=== PATIENT | female | born 1995 | race Caucasian/White ===

== ENCOUNTER 2018-03-25 05:55 | Emergency (ER) | payer OTHER ==
[~2018-03-25] VITALS: Ht 170.2 cm; Wt 83.0 kg
[2018-03-25 05:59] VITALS: BP 129/79
--- NOTE | 2018-03-25 06:06 | NUR ---
PT TAKEN TO BED 11
--- NOTE | 2018-03-25 06:18 | NUR ---
Dr. Hamilton evaluating patient at bedside.
--- NOTE | 2018-03-25 06:25 | NUR ---
23/F CAME IN ED WITH FAMILY/FRIEND, C/O PRESSURE-LIKE LOWER BACK PAIN, X10 HRS. PT REPORTS N/V X4. PT REPORTS FALLING ON BACK 2 WEEKS AGO, LOWER BACK PAIN RESOLVED WITH ICE. NO OBVIOUS ABNORMALITY NOTED ON LOWER BACK, +TENDERNESS. PT DENIES CP, SOB, DIARRHEA, DYSURIA. PT DENIES MED HX, RX. ER MD AT BEDSIDE TO EVALUATE PT.
[2018-03-25] MEDS ORDERED: DIAZEPAM 5 MG TAB PO ONE (07:00)
[2018-03-25] MEDS ORDERED: KETOROLAC 30 MG/ML VIAL IM ONE (07:00)
[2018-03-25 07:25] VITALS: BP 138/78
--- NOTE | 2018-03-25 07:25 | NUR ---
Patient discharged with v/s stable. Written and verbal after care instructions given and explained. Patient alert, oriented and verbalized understanding of instructions. Ambulatory with steady gait. All questions addressed prior to discharge. ID band removed. Patient advised to follow up with PMD. Rx of naprosyn, valium given. Patient educated on indication of medication including possible reaction and side effects. Opportunity to ask questions provided and answered.
== END 2018-03-25 07:25 | disposition home or self-care (01) ==
LOC: MED 05:55
DX: M54.5 Low back pain (principal)
CPT/HCPCS: 81002; 81025; 96372; 99283; J1885

== ENCOUNTER 2018-11-06 04:25 | Emergency (ER) | payer BC, OTHER ==
[~2018-11-06] VITALS: Ht 165.1 cm; Wt 84.4 kg
[2018-11-06 04:39] VITALS: BP 146/87
[2018-11-06] MEDS ORDERED: NACL 0.9% 1,000 ML IV ONE (04:42)
[2018-11-06] MEDS ORDERED: ONDANSETRON 4 MG/2 ML VIAL IVP ONE (04:45)
--- NOTE | 2018-11-06 04:45 | NUR ---
PT PRESENTS TO ED WITH C/O ABD PAIN S/P DRINKING MILK TODAY AT MIDNIGHT. PT REPORT N/V. PT DENIES PAIN UPON PALPATION. ABD IS SOFT NON TENDER. NO DISTENTION NOTED. PT PLACED INTO BED, PENDING MD GRANT.
--- NOTE | 2018-11-06 05:14 | NUR ---
LABS COMPLETED BY RN AND WALKED OVER TO LAB
[2018-11-06 05:20] LABS: BASOPHILS % (AUTO) 0.2 % (0.0-2.0); EOSINOPHILS # (AUTO) 0.3 K/uL (0-0.4); EOSINOPHILS % (AUTO) 3.7 % (0.0-4.0); HEMOGLOBIN 13.4 g/dL (12.0-16.0); LYMPHOCYTES # (AUTO) 2.7 K/uL (2.5-16.5); LYMPHOCYTES % (AUTO) 29.6 % (20.5-51.1); MEAN CORPUSCULAR HEMOGLOBIN 28 pg (27-31); MEAN CORPUSCULAR HGB CONC 34 g/dL (33-37); MONOCYTES # (AUTO) 0.8 K/uL (0.8-1.0); MONOCYTES % (AUTO) 8.9 % (1.7-9.3); NEUTROPHILS # (AUTO) 5.2 K/uL (1.8-7.7); NEUTROPHILS % (AUTO) 57.6 % (42.2-75.2); PLATELET COUNT (AUTO) 334 K/uL (140-450); RED BLOOD CELL COUNT(AUTO) 4.82 MIL/uL (4.20-5.40); RED CELL DISTRIBUTION WIDTH 14.3 % (11.6-13.7); WHITE BLOOD COUNT (AUTO) 9.1 K/uL (4.8-10.8)
[2018-11-06] MEDS ORDERED: MORPHINE SULFATE 4 MG/ML SYR IVP ONE (05:20)
[2018-11-06 05:41] LABS: ANION GAP 13.8 (8-16); CARBON DIOXIDE 27.2 mmol/L (21-32); CREATININE 0.8 mg/dL (0.6-1.3)
[2018-11-06 05:43] LABS: APPEARANCE,URINE CLEAR (CLEAR); BILIRUBIN,URINE NEGATIVE (NEGATIVE); BLOOD, URINE 2+ (NEGATIVE); COLOR,URINE YELLOW (YELLOW); LEUKOCYTE ESTERASE ,URINE NEGATIVE (NEGATIVE); NITRITE, URINE NEGATIVE (NEGATIVE); UGLUCOSE NEGATIVE (NEGATIVE)
[2018-11-06 05:46] LABS: ALBUMIN 3.9 g/dL (3.4-5.0); TOTAL BILIRUBIN 0.3 mg/dL (0.0-1.0)
[2018-11-06 05:56] LABS: WBC,URINE 0-5 /HPF (0-5)
--- NOTE | 2018-11-06 07:23 | NUR ---
REPORT GIVEN TO DANYELL MERCHANT. TRANSFER OF CARE AT THIS TIME.
--- NOTE | 2018-11-06 07:23 | NUR ---
RECEIVED REPORT FROM DANYELL RODRÍGUEZ FOR TRANSFER OF CARE.
[2018-11-06 08:57] VITALS: BP 129/74
--- NOTE | 2018-11-06 08:57 | NUR ---
Patient discharged with v/s stable. Written and verbal after care instructions given and explained. Patient alert, oriented and verbalized understanding of instructions. Ambulatory with steady gait. All questions addressed prior to discharge. ID band removed. Patient advised to follow up with PMD. Rx of Reglan, Bentyl, Tramadol Hydrochloride given. Patient educated on indication of medication including possible reaction and side effects. Opportunity to ask questions provided and answered.
== END 2018-11-06 08:57 | disposition home or self-care (01) ==
LOC: MED 04:25
DX: K80.20 Calculus of gallbladder without cholecystitis without obstruction (principal); R19.7 Diarrhea, unspecified
CPT/HCPCS: 36415; 76705; 80053; 81001; 81025; 83690; 85025; 96361; 96374; 96375; 99284; J2270; J2405; J7030; Q0092

== ENCOUNTER 2018-11-08 07:40 | Inpatient (IN) | payer BC, OTHER ==
[~2018-11-08] VITALS: Ht 167.6 cm; Wt 81.6 kg
[2018-11-08 07:46] VITALS: BP 121/75
--- NOTE | 2018-11-08 07:49 | NUR ---
urine cup handed to pt for sample
--- NOTE | 2018-11-08 07:55 | NUR ---
23/ BIB mother c/o N/V/D & epigastric pain x today. seen HERE 2 DAYS AGO.hx: MULTIPLE GALL STONES. rx----reglan, dicyclomine, tramadol. PATIENT STATES PAIN OF 10/10 AT THIS TIME; PATIENT POSITIONED FOR COMFORT; HOB ELEVATED; BEDRAILS UP X2; BED DOWN. ER MD MADE AWARE OF PT STATUS.
--- NOTE | 2018-11-08 08:07 | NUR ---
Patient being evaluated by DR RAMESH at bedside.
[2018-11-08] MEDS ORDERED: NACL 0.9% 1,000 ML IV ONE (08:12)
[2018-11-08] MEDS ORDERED: NACL 0.9% 1,000 ML IV SCH ×2 (08:12→10:08)
[2018-11-08] MEDS ORDERED: KETOROLAC 30 MG/ML VIAL IVP ONE (08:15)
[2018-11-08] MEDS ORDERED: ONDANSETRON 4 MG/2 ML VIAL IVP ONE (08:15)
[2018-11-08 08:58] LABS: BASOPHILS % (AUTO) 0.5 % (0.0-2.0); EOSINOPHILS # (AUTO) 0.3 K/uL (0-0.4); HEMATOCRIT 41.6 % (36-48); HEMOGLOBIN 13.7 g/dL (12.0-16.0); LYMPHOCYTES # (AUTO) 1.8 K/uL (2.5-16.5); LYMPHOCYTES % (AUTO) 23.4 % (20.5-51.1); MEAN CORPUSCULAR HEMOGLOBIN 28 pg (27-31); MEAN CORPUSCULAR HGB CONC 33 g/dL (33-37); MEAN CORPUSCULAR VOLUME 83.2 fL (80-94); MONOCYTES # (AUTO) 0.6 K/uL (0.8-1.0); NEUTROPHILS % (AUTO) 64.1 % (42.2-75.2); PLATELET COUNT (AUTO) 311 K/uL (140-450); RED CELL DISTRIBUTION WIDTH 14.3 % (11.6-13.7); WHITE BLOOD COUNT (AUTO) 7.8 K/uL (4.8-10.8)
--- NOTE | 2018-11-08 09:04 | NUR ---
US TEECH AT BEDSIDE AT THIS TIME.
[2018-11-08 09:10] LABS: ANION GAP 15.6 (8-16); CARBON DIOXIDE 24.9 mmol/L (21-32); CREATININE 0.7 mg/dL (0.6-1.3); POTASSIUM 4.5 mmol/L (3.5-5.1); PROTHROMBIN TIME 9.9 secs (10.8-13.4)
[2018-11-08 09:12] LABS: ALBUMIN 4.1 g/dL (3.4-5.0); TOTAL BILIRUBIN 0.7 mg/dL (0.0-1.0)
[2018-11-08 09:17] LABS: APPEARANCE,URINE CLEAR (CLEAR); BILIRUBIN,URINE NEGATIVE (NEGATIVE); BLOOD, URINE 2+ (NEGATIVE); COLOR,URINE YELLOW (YELLOW); LEUKOCYTE ESTERASE ,URINE NEGATIVE (NEGATIVE); NITRITE, URINE NEGATIVE (NEGATIVE); PH,URINE 7.5 (5.0-9.0); UGLUCOSE NEGATIVE (NEGATIVE)
[2018-11-08 09:30] LABS: RBC,URINE 11-20 (MOD) /HPF (0-5); WBC,URINE 0-5 /HPF (0-5)
--- NOTE | 2018-11-08 09:33 | NUR ---
Patient being reevaluated by DR RAMESH at bedside.
[2018-11-08] MEDS ORDERED: MORPHINE SULFATE 4 MG/ML SYR IVP ONE (09:50)
[2018-11-08] MEDS ORDERED: TRAM50TA1 PO (09:56)
[2018-11-08] MEDS ORDERED: METO-485 PO (09:56)
[2018-11-08] MEDS ORDERED: DICY10CA14 PO (09:56)
--- NOTE | 2018-11-08 09:59 | NUR ---
Patient appears to be resting comfortably in bed. Vital Signs within normal limits. Respirations even and unlabored.will continue to monitor.
[2018-11-08] MEDS ORDERED: ACETAMINOPHEN 325 MG TAB PO PRN (10:10)
[2018-11-08] MEDS ORDERED: LORazepam 2 MG/ML VIAL IM/IVP PRN (10:10)
[2018-11-08] MEDS ORDERED: ZOLPIDEM 5 MG TAB PO PRN (10:10)
[2018-11-08] MEDS ORDERED: ONDANSETRON 4 MG/2 ML VIAL IM/IVP PRN (10:10)
[2018-11-08] MEDS ORDERED: DOCUSATE SODIUM 100 MG GELCAP PO PRN (10:10)
[2018-11-08] MEDS ORDERED: HYDROcodone/APAP 5/325 MG 1 TAB TAB PO PRN (10:10)
[2018-11-08] MEDS ORDERED: MORPHINE SULFATE 2 MG/ML SYR IVP PRN (10:10)
--- NOTE | 2018-11-08 10:25 | NUR ---
LAB AT BEDSIDE.
--- NOTE | 2018-11-08 10:32 | NUR ---
PT TAKEN TO X RAY
--- NOTE | 2018-11-08 10:45 | NUR ---
Patient will be admitted to care of DR HOLLAND. Admited to MS. Will go to room 126A. Belongings list completed. Report to EARL CHILD.
[2018-11-08 10:50] VITALS: BP 120/80
--- NOTE | 2018-11-08 11:00 | NUR ---
MRSA SWABS AND URINE SPECIMEN TAKEN AND SENT TO LAB.
--- NOTE | 2018-11-08 11:00 | NUR ---
Admitted from ED , with chief complaint of ABDOMINAL PAIN. PT AAOX4. NO SOB NOTED. NO C/O PAIN AT THIS TIME. IV TO RT AND LT HAND PATENT AND INTACT. CHEST CLEAR. ABDOMEN SOFT, BOWEL SOUNDS PRESENT. INSTRUCTED PT NPO ORDERED. PT IS A 23 y/o ,Female, Cooperative,oriented to call light, bed, phone,television, bathroom, smoking policy,visiting hours, procedures, ID bracelet on. Belongings list checked. INSTRUCTED PT TO CALL FOR ASSISTANCE, CALL LIGHT WITHIN REACH, VERBALIZED UNDERSTANDING.
[2018-11-08 12:05] LABS: PROTHROMBIN TIME 10.3 secs (10.8-13.4)
[2018-11-08 12:08] LABS: BARBITURATE, URINE NEG. ng/ml (NEG <=200); BENZODIAZEPINE, URINE NEG. ng/mL (NEG <=200); CANNABINOID, URINE NEG. ng/mL (NEG <=50); COCAINE, URINE NEG. ng/mL (NEG <=300); OPIATE, URINE NEG. ng/mL (NEG <=2000); PHENCYCLIDINE SCREEN,URINE NEG. ng/mL (NEG <=25)
[2018-11-08 12:19] LABS: MAGNESIUM 1.8 mg/dL (1.8-2.4); PHOSPHORUS 2.2 mg/dL (2.5-4.9); THYROID STIMULATING HORMONE 0.87 uIU/mL (0.34-3.74)
--- NOTE | 2018-11-08 13:05 | NUR ---
PT RESTING. NO SOB NOTED. NO COMPLAINTS MADE. NPO MAINTAINED.
--- NOTE | 2018-11-08 15:28 | NUR ---
PATIENT HAS BEEN SCREENED AND CATEGORIZED HIGH NUTRITION RISK. PATIENT WILL BE SEEN WITHIN 1-2 DAYS OF ADMISSION. 11/09/18-11/10/[address]
[2018-11-08 16:00] VITALS: BP 118/80
[2018-11-08] MEDS ORDERED: SODIUM PHOSPHATE 15 MMOLE in NACL 0.9% 250 ML IV SCH (17:00)
--- NOTE | 2018-11-08 17:00 | NUR ---
PT AWAKE TALKING TO MOTHER AT THE BEDSIDE. NO COMPLAINTS MADE.
[2018-11-08] MEDS: BUPIVACAINE-MPF/EPI 0.25% 30 ML VIAL INJ ONE (18:09)
[2018-11-08] MEDS ORDERED: PANTOPRAZOLE 40 MG INJ VIAL IVP SCH (19:00)
--- NOTE | 2018-11-08 19:05 | NUR ---
PT AWAKE, NOTIFIED THAT PT 'S SCHEDULE FOR SURGERY IS AT 5 HRS TONIGHT. NPO MAINTAINED, VERBALIZED UNDERSTANDING. NO SOB NOTED. NO COMPLAINTS MADE. OR CHECK LIST STARTED. ENDORSED TO NEXT SHIFT NURSE FOR CONTINUITY OF CARE.
--- NOTE | 2018-11-08 19:06 | NUR ---
RECEIVED REPORT FROM DAY SHIFT NURSE EARL-RN AT BEDSIDE. PT RESTING IN BED, AOX4 WITH FAMILY AT BEDSIDE. ON ROOM AIR WITH LEFT HAND #22G RUNNING D5/NS @100 AND RIGHT FA #20G-SL. DISCUSSED PLAN OF CARE AND PT VERBALIZED UNDERSTANDING. NO S/S OF RESPIRATORY DISTRESS OR DISCOMFORT NOTED AT THIS TIME. BED IN LOWEST POSITION, BED BREAKS ON, BOTH SIDE RAILS UP. BEDSIDE TABLE AND CALL LIGHT ARE WITHIN REACH. WILL CONTINUE TO MONITOR.
[2018-11-08 20:00] VITALS: BP 119/73
--- NOTE | 2018-11-08 20:00 | NUR ---
VITAL SIGNS TAKEN AND TOLERATED WELL. NO S/S OF RESPIRATORY DISTRESS OR DISCOMFORT NOTED AT THIS TIME. WILL CONTINUE TO MONITOR.
--- NOTE | 2018-11-08 21:23 | NUR ---
DR. JERRICA ZEPEDA HAS RESCHEDULED SURGERY FOR TOMORROW 11/09/2018 AND ORDERED TO HAVE PT ON A CLEAR LIQUID DIET UNTIL MIDNIGHT NPO. SCHEDULED MEDICATION PROTONIX GIVEN AND TOLERATED WELL. NO S/S OF RESPIRATORY DISTRESS OR DISCOMFORT NOTED AT THIS TIME. WILL CONTINUE TO MONITOR.
[2018-11-08] MEDS: DEXT 5% /NACL 0.9% 1,000 ML IV SCH (21:28)
--- NOTE | 2018-11-08 22:00 | NUR ---
PT RESTING IN BED. NO S/S OF RESPIRATORY DISTRESS OR DISCOMFORT NOTED AT THIS TIME. WILL CONTINUE TO MONITOR.
[2018-11-09] VITALS: BP 102/60
--- NOTE | 2018-11-09 | NUR ---
VITAL SIGNS TAKEN AND TOLERATED WELL. NO S/S OF RESPIRATORY DISTRESS OR DISCOMFORT NOTED AT THIS TIME. WILL CONTINUE TO MONITOR.
--- NOTE | 2018-11-09 01:37 | NUR ---
SCHEDULED MEDICATION ROCEPHIN GIVEN AND TOLERATED WELL. NO S/S OF RESPIRATORY DISTRESS OR DISCOMFORT NOTED AT THIS TIME. WILL CONTINUE TO MONITOR.
[2018-11-09] MEDS ORDERED: cefTRIAXone 1,000 MG VIAL ONE (01:40)
--- NOTE | 2018-11-09 02:45 | NUR ---
ENDORSED PT CARE TO CHARGE NURSE ANTONIETA-DANYELL FOR CONTINUITY OF CARE.
--- NOTE | 2018-11-09 02:46 | NUR ---
RECEIVED PT SLEEPING, NO SIGNS OF PAIN, IVF INFUSING WELL, MAINTAINED ON NPO, FOR SURGERY TODAY AT 1030, MONITORED CLOSELY.
--- NOTE | 2018-11-09 04:36 | NUR ---
ROUNDS MADE, PT SLEEPING, NO SIGNS OF PAIN, IVF INFUSING WELL, MOTHER AT BEDSIDE.
--- NOTE | 2018-11-09 06:10 | NUR ---
AM LABS DRAWN, DENIES ANY PAIN, MADE AWARE OF SCHEDULE OR TIME, MAINTAINED ON NPO, IVF INFUSING WELL, MOTHER AT BEDSIDE.
[2018-11-09 08:00] VITALS: BP 119/68
[2018-11-09 08:04] LABS: ANION GAP 13.1 (8-16); CARBON DIOXIDE 25.1 mmol/L (21-32); CREATININE 0.7 mg/dL (0.6-1.3); POTASSIUM 4.2 mmol/L (3.5-5.1)
[2018-11-09 08:27] LABS: HEMATOCRIT 35.2 % (36-48); HEMOGLOBIN 11.9 g/dL (12.0-16.0); MEAN CORPUSCULAR HEMOGLOBIN 28 pg (27-31); MEAN CORPUSCULAR HGB CONC 34 g/dL (33-37); MEAN CORPUSCULAR VOLUME 83.5 fL (80-94); PLATELET COUNT (AUTO) 361 K/uL (140-450); RED BLOOD CELL COUNT(AUTO) 4.21 MIL/uL (4.20-5.40); RED CELL DISTRIBUTION WIDTH 14.3 % (11.6-13.7); WHITE BLOOD COUNT (AUTO) 6.7 K/uL (4.8-10.8)
[2018-11-09 08:32] LABS: MAGNESIUM 1.8 mg/dL (1.8-2.4); PHOSPHORUS 3.2 mg/dL (2.5-4.9)
[2018-11-09 08:35] LABS: CHOL/HDL RATIO 3.8 (1-4.5)
[2018-11-09] MEDS ORDERED: PANTOPRAZOLE 40 MG INJ VIAL IVP SCH (09:00)
[2018-11-09 09:29] LABS: LYMPHOCYTES % (MANUAL) 28 % (20-46)
[2018-11-09 09:30] LABS: EOSINOPHILS % (MANUAL) 6 % (0-4); MONOCYTES % (MANUAL) 11 % (5-12)
[2018-11-09] MEDS: PANTOPRAZOLE 40 MG INJ VIAL IVP SCH (09:31)
[2018-11-09] MEDS: DEXT 5% /NACL 0.9% 1,000 ML IV SCH ×2 (09:31→17:00)
--- NOTE | 2018-11-09 14:40 | NUR ---
11/09/18 RD INITIAL ASSESSMENT COMPLETED PLEASE REFER TO NUTRITION ASSESSMENT UNDER CARE ACTIVITY FOR ESTIMATED NUTRITIONAL NEEDS. 1. CONTINUE NPO MEDICALLY NECESSARY 2. RECOMMEND A LOW FAT DIET WHEN PT IS MEDICALLY STABLE TO RECEIVE NUTRITION 3. LOW FAT DIET EDUCATION WAS PROVIDED 4. RD TO FOLLOW-UP 3-5 DAYS, MODERATE RISK DESTINY GILL RD
[2018-11-09 16:00] VITALS: BP 113/70
--- NOTE | 2018-11-09 19:44 | NUR ---
ENDORSED PT TO LOCOMOTIVE PIPE FITTER FOR CONTINUITY OF CARE. PT IN STABLE CONDITION.
--- NOTE | 2018-11-09 19:45 | NUR ---
RECEIVED BEDSIDE REPORT FROM DAY SHIFT RN. PT IS IN OR. VITO CHILDRESS BOARD UP DATED. MOTHER IS IN ROOM.
[2018-11-09] MEDS ORDERED: SEVOFLURANE 250 ML BTL INH ONE (20:15)
[2018-11-09] MEDS ORDERED: ROCURONIUM 50 MG/5 ML VIAL IV ONE (20:15)
[2018-11-09] MEDS ORDERED: PROPOFOL 200 MG/20 ML VIAL IV ONE (20:15)
[2018-11-09] MEDS ORDERED: DEXAMETHASONE 4 MG/ML VIAL ONE (20:15)
[2018-11-09] MEDS ORDERED: ONDANSETRON 4 MG/2 ML VIAL ONE ×2 (20:15→22:11)
[2018-11-09] MEDS ORDERED: SUCCINYLCHOLINE CHLORIDE 200 MG/10 ML VIAL IVP ONE (20:15)
[2018-11-09] MEDS ORDERED: KETOROLAC 30 MG/ML VIAL ONE (20:15)
[2018-11-09] MEDS ORDERED: fentaNYL 0.05 MG/ML VIAL ONE (20:18)
[2018-11-09] MEDS ORDERED: MEPERIDINE 50 MG/ML SYR ONE (20:18)
[2018-11-09] MEDS ORDERED: MIDAZOLAM 2 MG/2 ML VIAL ONE (20:18)
[2018-11-09] MEDS ORDERED: BUPIVACAINE-MPF/EPI 0.5% 30 ML VIAL INJ ONE (20:20)
[2018-11-09] MEDS: BUPIVACAINE-MPF/EPI 0.25% 30 ML VIAL INJ ONE (21:35)
[2018-11-09] MEDS ORDERED: diphenhydrAMINE 50 MG/ML VIAL IVP PRN (21:45)
[2018-11-09] MEDS ORDERED: ONDANSETRON 4 MG/2 ML VIAL IVP PRN (21:45)
[2018-11-09] MEDS ORDERED: MEPERIDINE 25 MG/ML SYR IVP PRN (21:45)
[2018-11-09] MEDS: HYDROmorphone 1 MG/ML AMP IVP PRN ×2 (22:12→22:17)
[2018-11-09] MEDS ORDERED: HYDROmorphone PFS 2 MG/ML SYR ONE (22:19)
[2018-11-09 22:23] VITALS: BP 109/63
--- NOTE | 2018-11-09 22:23 | NUR ---
PT CAME BACK FROM SURGERY. S/P LAP TI 4 SURGICAL INCISION WITH LYLE PER RN. BANDAGE ARE CLEAN DRY AND INTACT. MOTHER IS AT BEDSIDE. PT WITH IV ON L HAND 22G. PT STATES PAIN / WILL MEDICATE. VS: 109/63 71 HR, 98% RA, RR 16. TEMP 98.0
[2018-11-09] MEDS ORDERED: MORPHINE SULFATE 2 MG/ML SYR IVP PRN (22:45)
--- NOTE | 2018-11-10 | NUR ---
VITAL SIGNS ARE WITHIN NORMAL LIMITS. PT RESTING COMFORTABLY IN BED. RESPIRATIONS ARE EQUAL AND UNLABORED.
[2018-11-10 00:01] VITALS: BP 111/69
[2018-11-10] MEDS ORDERED: INFLUENZA VIRUS VACCINE QUAD 0.5 ML SYR IMVAC PRN (01:25)
--- NOTE | 2018-11-10 02:45 | NUR ---
PT IS SLEEPING COMFORTABLY IN BED. RESPIRATIONS ARE EQUAL AND UNLABORED. SAFETY MEASURES ARE IN PLACE. CALL LIGHT WITHIN REACH.
[2018-11-10] MEDS: DEXT 5% /NACL 0.9% 1,000 ML IV SCH (03:17)
[2018-11-10] MEDS: MORPHINE SULFATE 2 MG/ML SYR IVP PRN ×2 (04:15→08:45)
--- NOTE | 2018-11-10 04:15 | NUR ---
B/P WITHIN NORMAL LIMITS. MORPHINE GIVEN FOR PAIN. PT TOLERATED WELL. ALL NEEDS MET AT THIS TIME. CALL LIGHT WITHIN REACH. WILL CONTINUE TO MONITOR.
--- NOTE | 2018-11-10 05:12 | NUR ---
ASSISTED PT TO BATHROOM GAIT STEADY PT STATES FEELS NAUSEOUS ADMINISTERED ZOFRAN AND OFFERED SALTY CRACKERS. SAFETY MEASURES ARE IN PLACE. CALL LIGHT WITHIN REACH. WILL CONTINUE TO MONITOR
--- NOTE | 2018-11-10 05:50 | NUR ---
PT COMPLAIN OF DISCOMFORT ON IV ON R FA 20G. IV REMOVED CATH INTACT. PT TOLERATED WELL. CALL LIGHT WITHIN REACH
[2018-11-10 06:26] LABS: ANION GAP 14.4 (8-16); CARBON DIOXIDE 22.7 mmol/L (21-32); CREATININE 0.7 mg/dL (0.6-1.3); POTASSIUM 4.1 mmol/L (3.5-5.1)
[2018-11-10 06:33] LABS: MAGNESIUM 1.9 mg/dL (1.8-2.4); PHOSPHORUS 2.6 mg/dL (2.5-4.9)
--- NOTE | 2018-11-10 07:23 | NUR ---
GAVE BEDSIDE REPORT TO DAY SHIFT RN. PT ENDORSED IN STABLE CONDITION. SAFETY MEASURES ARE IN PLACE.
--- NOTE | 2018-11-10 07:56 | NUR ---
PATIENT WAS SLEEPING COMFORTABLY, EASILY AROUSABLE BY NAME. RESPIRATION EVEN, UNLABOR ON ROOM AIR. SKIN DRY AND WARM. IV PATENT AND INTACT. COMPLAINED OF INCISIONAL PAIN, SHARP, 6/10, WILL MEDICATE PER ORDER. PLAN OF CARE WAS DISCUSSED WITH PATIENT. BED AT LOW POSITION, SIDE RAILS UP. CALL LIGHT WITHIN REACH
[2018-11-10 08:00] VITALS: BP 111/66
[2018-11-10] MEDS ORDERED: HYDROcodone/APAP 5/325 MG 1 TAB TAB PO PRN (08:25)
[2018-11-10] MEDS: PANTOPRAZOLE 40 MG INJ VIAL IVP SCH (08:45)
[2018-11-10 09:12] LABS: HEMOGLOBIN 12.7 g/dL (12.0-16.0); LYMPHOCYTES # (AUTO) 0.6 K/uL (2.5-16.5); LYMPHOCYTES % (AUTO) 5.6 % (20.5-51.1); MEAN CORPUSCULAR HEMOGLOBIN 27 pg (27-31); MEAN CORPUSCULAR HGB CONC 33 g/dL (33-37); MEAN CORPUSCULAR VOLUME 83.9 fL (80-94); MONOCYTES # (AUTO) 0.2 K/uL (0.8-1.0); MONOCYTES % (AUTO) 1.9 % (1.7-9.3); NEUTROPHILS # (AUTO) 10.4 K/uL (1.8-7.7); NEUTROPHILS % (AUTO) 92.5 % (42.2-75.2); PLATELET COUNT (AUTO) 324 K/uL (140-450); RED BLOOD CELL COUNT(AUTO) 4.65 MIL/uL (4.20-5.40); WHITE BLOOD COUNT (AUTO) 11.2 K/uL (4.8-10.8)
[2018-11-10] MEDS ORDERED: ACET-9525 PO (09:21)
[2018-11-10] MEDS ORDERED: DOCU-299 PO (09:21)
--- NOTE | 2018-11-10 09:40 | NUR ---
PT COMPLAINED OF IV SITE PAIN WHEN FLUSHED WITH NS. NO REDNESS NOTED. FELT TENDER. REMOVED IV AND PUT GAUZE WITH TAPE. PATIENT DENIES PAIN AT IV SITE Addendum: 11/10/18 at 1027 by Marisol Johansen RN IV WAS REMOVED, CATHETER INTACT, BLEEDING CONTROLLED, PT TOLERATED WELL.
[2018-11-10] MEDS ORDERED: SIMETHICONE 80 MG TAB.CHEW PO SCH (10:00)
--- NOTE | 2018-11-10 10:25 | NUR ---
DR. SOTOMAYOR WAS MADE AWARE THAT PT HAS NO IV ACCESS AT THIS TIME, OKAY WITH PO MEDS.
[2018-11-10] MEDS ORDERED: CYCLOBENZAPRINE 10 MG TAB PO SCH ×2 (10:30→13:00)
--- NOTE | 2018-11-10 10:40 | NUR ---
PT RESTING COMFORTABLY ON THE PHONE, MOTHER NOT AT BEDSIDE,CALL LIGHT WITHIN REACH, WILL CONTINUE TO MONITOR
--- NOTE | 2018-11-10 11:40 | NUR ---
PATIENT WAS AMBULATING AROUND THE HALLWAY WITH FAMILY, STEADY GAIT. NO DISTRESS NOTED
--- NOTE | 2018-11-10 13:03 | NUR ---
PT RESTING COMFORTABLY WITH MOM AT BEDSIDE, PT STATES SHE TOLERATED LUNCH GOOD, PT STATES SHE DOES NOT FEEL NAUSEOUS, WILL CONTINUE TO MONITOR
--- NOTE | 2018-11-10 13:50 | NUR ---
DISCHARGE INSTRUCTION AND PRESCRIPTIONS WERE GIVEN AND EXPLAINED TO THE PATIENT. PATIENT VERBALIZED UNDERSTANDING. WOUND DRESSINGS WERE REMOVED. INCISIONS DRY AND CLEAN. WOUND CARE INSTRUCTIONS WERE GIVEN. WOUND PICTURE WAS TAKEN. EXCUSE FROM WORK WAS SIGNED BY DR. LANDRY AND WAS GIVEN TO PATIENT. FLU VAC WAS ADMINISTERED PER ORDER.
--- NOTE | 2018-11-10 14:05 | NUR ---
PT ESCORTED OUT BY STAFF IN WHEELCHAIR, PT TOOK ALL PERSONAL BELONGINGS, PT STABLE WHEN DISCHARGED
== END 2018-11-10 14:05 | disposition home or self-care (01) | DRG 419 ==
LOC: MED 07:40 → MMU 10:32
PROVIDERS: ADMIT General Practice; ATTEND General Practice
PROC: 0FT44ZZ Resection of Gallbladder, Percutaneous Endoscopic Approach (ICD-10-PCS; principal; 2018-11-09 10:30)
PROC: 3E02340 Introduction of Influenza Vaccine into Muscle, Percutaneous Approach (ICD-10-PCS; 2018-11-10)
DX: K80.12 Calculus of gallbladder with acute and chronic cholecystitis without obstruction (principal); E66.3 Overweight; E83.39 Other disorders of phosphorus metabolism; N28.1 Cyst of kidney, acquired; R31.9 Hematuria, unspecified; E78.5 Hyperlipidemia, unspecified; Z68.29 Body mass index [BMI] 29.0-29.9, adult; Z82.49 Family history of ischemic heart disease and other diseases of the circulatory system; N20.0 Calculus of kidney; Z23 Encounter for immunization
CPT/HCPCS: 36415; 71045; 74150; 76705; 80048; 80053; 80305; 81001; 81025; 82150; 82374; 82977; 83036; 83690; 83735; 83880; 84100; 84443; 85025; 85610; 85730; 86886; 86900; 86901; 87081; 88304; 93005; 96361; 96374; 96375; 99285; C1887; C9113; J0330; J0696; J1100; J1170; J1885; J2060; J2175; J2250; J2270; J2405; J2704; J3010; J3490; J7030; J7042; J7060; Q0092

== ENCOUNTER 2018-12-10 06:45 | Emergency (ER) | payer BC ==
[~2018-12-10] VITALS: Ht 170.2 cm; Wt 72.6 kg
[~2018-12-10 06:45] MED LIST: ACET-9525 PO; DOCU-299 PO; METO-485 PO
[2018-12-10 06:55] VITALS: BP 138/88
--- NOTE | 2018-12-10 06:55 | NUR ---
TO BED #08 AMBULATORY
--- NOTE | 2018-12-10 07:15 | NUR ---
PATIENT PRESENTS TO ED WITH C/O ABDOMINAL PAIN, DENIES N/V, S/P CHOLECYSTECTOMY LAST NOVEMBER 09, TOOK NORCO AT 0700 . SURGICAL INCISION TO ABDOMEN, C/D/I. STATES COME AND GOES PAIN OF 8/10 AT THIS TIME; VSS; PATIENT POSITIONED FOR COMFORT; HOB ELEVATED; BEDRAILS UP X2; BED DOWN. ER MD MADE AWARE OF PT STATUS.
--- NOTE | 2018-12-10 07:44 | NUR ---
Patient being evaluated by physician at bedside.
[2018-12-10] MEDS ORDERED: NACL 0.9% 500 ML IV ONE (07:46)
--- NOTE | 2018-12-10 07:47 | NUR ---
Pauline howard in ED - 12/10/18 at 1005 by DARIUSX Patient being evaluated by physician at bedside.
[2018-12-10] MEDS ORDERED: KETOROLAC 30 MG/ML VIAL IVP ONE (07:50)
[2018-12-10] MEDS ORDERED: ONDANSETRON 4 MG/2 ML VIAL IVP ONE (07:50)
[2018-12-10] MEDS ORDERED: PANTOPRAZOLE 40 MG INJ VIAL IVP ONE (07:50)
[2018-12-10 08:18] LABS: BASOPHILS % (AUTO) 0.1 % (0.0-2.0); EOSINOPHILS # (AUTO) 0.2 K/uL (0-0.4); EOSINOPHILS % (AUTO) 2.8 % (0.0-4.0); HEMATOCRIT 39.5 % (36-48); HEMOGLOBIN 12.8 g/dL (12.0-16.0); LYMPHOCYTES # (AUTO) 1.5 K/uL (2.5-16.5); LYMPHOCYTES % (AUTO) 22.8 % (20.5-51.1); MEAN CORPUSCULAR HEMOGLOBIN 28 pg (27-31); MEAN CORPUSCULAR HGB CONC 33 g/dL (33-37); MEAN CORPUSCULAR VOLUME 84.6 fL (80-94); MONOCYTES # (AUTO) 0.5 K/uL (0.8-1.0); MONOCYTES % (AUTO) 7.5 % (1.7-9.3); NEUTROPHILS # (AUTO) 4.5 K/uL (1.8-7.7); NEUTROPHILS % (AUTO) 66.8 % (42.2-75.2); PLATELET COUNT (AUTO) 299 K/uL (140-450); RED BLOOD CELL COUNT(AUTO) 4.67 MIL/uL (4.20-5.40); RED CELL DISTRIBUTION WIDTH 14.6 % (11.6-13.7); WHITE BLOOD COUNT (AUTO) 6.7 K/uL (4.8-10.8)
[2018-12-10 08:39] LABS: ALBUMIN 3.9 g/dL (3.4-5.0); ANION GAP 12.4 (8-16); CREATININE 0.7 mg/dL (0.6-1.3); POTASSIUM 4.4 mmol/L (3.5-5.1); TOTAL BILIRUBIN 0.3 mg/dL (0.0-1.0)
--- NOTE | 2018-12-10 09:30 | NUR ---
PT IS RESTING IN BED, NO S/S OF DISTRESS, VSS, ABDOMINAL PAIN 5/10.
--- NOTE | 2018-12-10 09:36 | NUR ---
PT IS OFF UNIT FOR CT.
--- NOTE | 2018-12-10 09:50 | NUR ---
PT IS BACK FROM CT.
--- NOTE | 2018-12-10 10:44 | NUR ---
RECIEVED REPORT FROM GLO CHILD.
--- NOTE | 2018-12-10 10:52 | NUR ---
Patient discharged with v/s stable. Written and verbal after care instructions given and explained. Patient alert, oriented and verbalized understanding of instructions. Ambulatory with steady gait. All questions addressed prior to discharge. ID band removed. Patient advised to follow up with PMD. Rx of MOTRIN, ZOFRAN AND PROTONIX given. Patient educated on indication of medication including possible reaction and side effects. Opportunity to ask questions provided and answered.
[2018-12-10 10:53] VITALS: BP 138/88
== END 2018-12-10 10:52 | disposition home or self-care (01) ==
LOC: MED 06:45
DX: K29.70 Gastritis, unspecified, without bleeding (principal); Z79.891 Long term (current) use of opiate analgesic; Z79.899 Other long term (current) drug therapy; Z90.49 Acquired absence of other specified parts of digestive tract; Z90.710 Acquired absence of both cervix and uterus
CPT/HCPCS: 36415; 74022; 80053; 81002; 81025; 83690; 85025; 96361; 96374; 96375; 99284; C9113; J1885; J2405; J7030

== ENCOUNTER 2019-10-09 19:06 | Emergency (ER) | payer BC ==
[~2019-10-09] VITALS: Ht 170.2 cm; Wt 82.1 kg
[2019-10-09 19:18] VITALS: BP 125/80
[2019-10-09] MEDS ORDERED: KETOROLAC 30 MG/ML VIAL IM ONE (19:45)
--- NOTE | 2019-10-09 19:50 | NUR ---
24 YO FEMALE CO COUGH AND STERNAL PAIN X2D. PT STATES THE COUGH IS NON PRODUCTIVE. LUNGS CLEAR IN ALL AREAS THROUGHOUT. NO BREATHING PROBLEMS. PT STATES THAT SE HAS STERNAL PAIN THAT IS 3/10. PT TAKING LORATIDINE AND IBUPROFEN AT HOME. HX OF GALL BLADDER SURGERY.
--- NOTE | 2019-10-09 19:55 | NUR ---
RAD AT BEDSIDE
--- NOTE | 2019-10-09 20:31 | NUR ---
NADR. DECREASED PAIN 10
[2019-10-09 21:14] VITALS: BP 125/80
--- NOTE | 2019-10-09 21:14 | NUR ---
Patient discharged with v/s stable. Written and verbal after care instructions given and explained. Patient alert, oriented and verbalized understanding of instructions. Ambulatory with steady gait. All questions addressed prior to discharge. ID band removed. Patient advised to follow up with PMD. Rx of GUAIATUSSIN, NAPROSYN given. Patient educated on indication of medication including possible reaction and side effects. Opportunity to ask questions provided and answered.
== END 2019-10-09 21:14 | disposition home or self-care (01) ==
LOC: MED 19:06
DX: J06.9 Acute upper respiratory infection, unspecified (principal); Z90.49 Acquired absence of other specified parts of digestive tract; Z79.899 Other long term (current) drug therapy
CPT/HCPCS: 71045; 87804; 96372; 99284; J1885; Q0092

== ENCOUNTER 2024-02-28 18:45 | Emergency (ER) | payer BC, OTHER ==
[~2024-02-28] VITALS: Ht 170.2 cm; Wt 95.5 kg
[2024-02-28 18:51] VITALS: BP 153/91; PULSE 73; RESP 17; TEMP 97.8; O2SAT 98
[2024-02-28 20:35] LABS: BASOPHILS % (AUTO) 0.3 % (0.0-2.0); EOSINOPHILS # (AUTO) 0.2 K/uL (0-0.4); EOSINOPHILS % (AUTO) 1.2 % (0.0-4.0); HEMATOCRIT 39.3 % (36-48); HEMOGLOBIN 12.8 g/dL (12.0-16.0); LYMPHOCYTES # (AUTO) 4.1 K/uL (2.5-16.5); LYMPHOCYTES % (AUTO) 30.4 % (20.5-51.1); MEAN CORPUSCULAR HEMOGLOBIN 27 pg (27-31); MEAN CORPUSCULAR HGB CONC 33 g/dL (33-37); MEAN CORPUSCULAR VOLUME 81.9 fL (80-94); MONOCYTES # (AUTO) 1.1 K/uL (0.8-1.0); MONOCYTES % (AUTO) 8.3 % (1.7-9.3); NEUTROPHILS # (AUTO) 8.1 K/uL (1.8-7.7); NEUTROPHILS % (AUTO) 59.8 % (42.2-75.2); PLATELET COUNT (AUTO) 380 K/uL (140-450); RED CELL DISTRIBUTION WIDTH 14.8 % (11.6-13.7); WHITE BLOOD COUNT (AUTO) 13.5 K/uL (4.8-10.8)
[2024-02-28] MEDS: MORPHINE SULFATE 4 MG/ML SYR IVP ONE (20:49)
[2024-02-28 20:51] VITALS: BP 137/80; PULSE 66; RESP 15
[2024-02-28 20:52] VITALS: O2SAT 99
[2024-02-28 20:59] LABS: ANION GAP 12.9 (8-16); CALCIUM 9.6 mg/dL (8.5-10.1); CARBON DIOXIDE 28.2 mmol/L (21-32); CREATININE 0.8 mg/dL (0.6-1.3); POTASSIUM 4.1 mmol/L (3.5-5.1)
[2024-02-28 21:05] LABS: BILIRUBIN,DIRECT 0.1 mg/dL (0.0-0.3); TOTAL BILIRUBIN 0.3 mg/dL (0.0-1.0); TOTAL PROTEIN, SERUM 8.5 g/dL (6.4-8.2)
[2024-02-28 21:15] LABS: APPEARANCE,URINE CLEAR (CLEAR); BILIRUBIN,URINE NEGATIVE (NEGATIVE); BLOOD, URINE 3+ (NEGATIVE); COLOR,URINE YELLOW (YELLOW); LEUKOCYTE ESTERASE ,URINE NEGATIVE (NEGATIVE); NITRITE, URINE NEGATIVE (NEGATIVE); PROTEIN,URINE NEGATIVE (NEGATIVE); UGLUCOSE NEGATIVE (NEGATIVE); UROBILINOGEN,URINE 0.2 EU/dL (0.2 - 1)
[2024-02-28 21:22] LABS: BACTERIA,URINE FEW /HPF (None Seen); CALCIUM OXALATE CRYSTALS,UR 0-10 /HPF (None Seen); SQUAMOUS EPITHELIAL CELL,UR 0-3 (FEW) /LPF (0-3 (FEW)); WBC,URINE 0-5 /HPF (0-5)
[2024-02-28] MEDS: KETOROLAC 30 MG/ML VIAL IVP ONE (22:50)
[2024-02-28] MEDS ORDERED: NAPR-337 PO (23:38)
== END 2024-02-28 23:53 | disposition home or self-care (01) ==
LOC: MED 18:45
DX: S30.1XXA Contusion of abdominal wall, initial encounter (principal); M79.661 Pain in right lower leg; D72.829 Elevated white blood cell count, unspecified; Z79.1 Long term (current) use of non-steroidal anti-inflammatories (NSAID); Z79.899 Other long term (current) drug therapy; V49.9XXA Car occupant (driver) (passenger) injured in unspecified traffic accident, initial encounter; Y93.89 Activity, other specified; Y92.89 Other specified places as the place of occurrence of the external cause; Y99.8 Other external cause status
CPT/HCPCS: 36415; 74174; 80048; 80076; 81001; 81025; 83690; 85025; 96374; 96375; 99285; J1885; J2270; Q9967